=== PATIENT | male | born 1960 | race Caucasian/White ===

== ENCOUNTER 2017-10-28 22:14 | Inpatient (IN) | payer MEDICARE, MEDICAID ==
[~2017-10-28] VITALS: Ht 152.4 cm; Wt 90.7 kg
[~2017-10-28 22:14] MED LIST: CLON0.1T PO; COR3 PO; DIPH25CA83 PO; FAMO20TA8 PO; HYDR-4134 PO; IPRA0.2S51 IH; MAG-55 PO; NEPVIT PO; SEVE800T8 PO; TRAM50TA3 PO; ZOLP5TAB2 PO
[2017-10-28 23:08] LABS: BASOPHILS % 0.4 % (0.0-2.0); EOSINOPHILS % 0.6 % (0.0-5.0); HEMATOCRIT. 30.9 % (42.0-52.0); HEMOGLOBIN. 10.1 g/dL (14.0-18.0); LYMPHOCYTES % 8.1 % (20.0-50.0); MEAN CORPUSCULAR HEMOGLOBIN 30.6 pg (28.0-32.0); MEAN CORPUSCULAR VOLUME 93.6 fL (80.0-94.0); MEAN PLATELET VOLUME 8.1 fl (7.4-10.4); MONOCYTES % 10.3 % (2.0-8.0); NEUTROPHILS % 80.6 % (40.0-76.0); PLATELET 203 x1000/uL (130-400)
[2017-10-28] MEDS ORDERED: SODIUM CHLORIDE 0.9% 500 ML IV ONE (23:15)
[2017-10-28 23:16] LABS: CHLORIDE 95 mEq/L (98-107)
[2017-10-28 23:20] LABS: ETHANOL BLOOD < 10 mg/dL
[2017-10-28 23:23] LABS: BETA HYDROXYBUTYRATE 0.1 mMol/L (0.0-0.3)
[2017-10-28 23:25] LABS: TROPONIN I 0.05 ng/mL (0.00-0.04)
[2017-10-29] MEDS ORDERED: ASPIRIN 325MG TABLET PO ONE (00:30)
[2017-10-29 08:00] VITALS: BP 162/72
[2017-10-29 08:30] VITALS: BP 162/73
[2017-10-29] MEDS ORDERED: MAGNESIUM/ALUMINUM HYDROXIDE/SIMETHICONE 30ML UDC PO PRN (08:45)
[2017-10-29] MEDS ORDERED: DEXTROSE 50% WATER 50ML SYRINGE IV PRN ×2 (08:45→14:15)
[2017-10-29] MEDS ORDERED: DOCUSATE SODIUM 100MG CAPSULE PO PRN (08:45)
[2017-10-29] MEDS ORDERED: DIPHENHYDRAMINE 50MG/ML VIAL IV PRN (08:45)
[2017-10-29] MEDS ORDERED: IPRATROPIUM/ALBUTEROL 0.5-3(2.5)MG/3ML NEB INH PRN (08:45)
[2017-10-29] MEDS ORDERED: ACETAMINOPHEN 650MG SUPP PR PRN (08:45)
[2017-10-29] MEDS ORDERED: ACETAMINOPHEN 650MG/20.3ML UDC GT PRN (08:45)
[2017-10-29] MEDS ORDERED: NA PHOS,M-B/NA PHOS,DI-BA ENEMA 118ML PR PRN (08:45)
[2017-10-29] MEDS: ENOXAPARIN 40MG/0.4ML SYR SUBCUT SCH (09:49)
[2017-10-29 12:00] VITALS: BP 161/62
[2017-10-29 12:19] LABS: HEMATOCRIT. 27.8 % (42.0-52.0); HEMOGLOBIN. 8.9 g/dL (14.0-18.0); MEAN CORPUSCULAR HEMOGLOBIN 29.8 pg (28.0-32.0); MEAN CORPUSCULAR VOLUME 92.9 fL (80.0-94.0); MEAN PLATELET VOLUME 8.3 fl (7.4-10.4); PLATELET 220 x1000/uL (130-400); RED BLOOD CELL COUNT 2.99 mill/uL (4.7-6.1)
[2017-10-29 12:32] LABS: CHLORIDE 96 mEq/L (98-107)
[2017-10-29] MEDS ORDERED: BLOOD SUGAR DIAGNOSTIC STRIP TEST SCH (12:40)
[2017-10-29 12:45] LABS: PLATELET ESTIMATE NORMAL
[2017-10-29] MEDS ORDERED: INSULIN LISPRO 100 UNITS/ML SUBCUT SCH (13:10)
[2017-10-29 13:33] LABS: T4 FREE 1.11 ng/dL (0.76-1.46)
[2017-10-29] MEDS: SODIUM CHLORIDE 0.9% INJ 3ML FLUSH IVF SCH ×2 (13:58→21:07)
[2017-10-29 16:00] VITALS: BP 162/63
[2017-10-29 17:08] LABS: CREATINE KINASE MB FRACTION 1.1 ng/mL (0.5-3.6); TROPONIN I 0.05 ng/mL (0.00-0.04)
[2017-10-29] MEDS: CLONIDINE 0.1MG TABLET PO PRN (17:20)
[2017-10-29] MEDS: ACETAMINOPHEN 325MG TABLET PO PRN (17:20)
[2017-10-29] MEDS ORDERED: ALBUTEROL (0.083%) 2.5MG/3ML NEB HHN NR (18:00)
[2017-10-29] MEDS ORDERED: BACL-141 PO (18:30)
[2017-10-29] MEDS ORDERED: LISI-604 PO (18:30)
[2017-10-29] MEDS ORDERED: DORZ10DR7 EACHEYE (18:30)
[2017-10-29] MEDS ORDERED: BENA20TA3 PO (18:30)
[2017-10-29] MEDS ORDERED: GABA-529 PO (18:30)
[2017-10-29] MEDS ORDERED: LIDO30CR TP (18:30)
[2017-10-29] MEDS ORDERED: CINA30 PO (18:30)
[2017-10-29] MEDS ORDERED: FURO-152 PO (18:30)
[2017-10-29] MEDS ORDERED: MELA5TAB3 PO (18:30)
[2017-10-29] MEDS: BLOOD SUGAR DIAGNOSTIC STRIP TEST SCH ×2 (18:35→21:05)
[2017-10-29] MEDS ORDERED: IOHEXOL-300 100 ML BOTTLE ONE (19:07)
[2017-10-29] MEDS: CEFTRIAXONE 1 G PREMIX 50 ML IV SCH (19:15)
[2017-10-29] MEDS: INSULIN LISPRO 100 UNITS/ML SUBCUT SCH ×2 (19:15→21:19)
[2017-10-29] MEDS: GUAIFENESIN 200MG/10ML SUGAR FREE UDC PO PRN (19:15)
[2017-10-29 20:00] VITALS: BP 129/61
[2017-10-29] MEDS ORDERED: AZITHROMYCIN 500 MG in DEXT 5% WATER 250 ML IV SCH (20:00)
[2017-10-30] VITALS: BP 136/63
[2017-10-30 00:34] LABS: CREATINE KINASE MB FRACTION 0.7 ng/mL (0.5-3.6); TROPONIN I 0.04 ng/mL (0.00-0.04)
[2017-10-30] MEDS: ALBUTEROL (0.083%) 2.5MG/3ML NEB HHN SCH ×2 (01:54→21:47)
[2017-10-30 04:00] VITALS: BP 128/48
[2017-10-30] MEDS: ACETAMINOPHEN 325MG TABLET PO PRN ×3 (04:08→20:37)
[2017-10-30] MEDS: BLOOD SUGAR DIAGNOSTIC STRIP TEST SCH ×4 (05:42→20:24)
[2017-10-30] MEDS: SODIUM CHLORIDE 0.9% INJ 3ML FLUSH IVF SCH ×3 (05:42→20:37)
[2017-10-30 06:29] LABS: HEMATOCRIT. 28.4 % (42.0-52.0); HEMOGLOBIN. 9.1 g/dL (14.0-18.0); MEAN CORPUSCULAR VOLUME 93.3 fL (80.0-94.0); MEAN PLATELET VOLUME 8.6 fl (7.4-10.4); PLATELET 240 x1000/uL (130-400); RED BLOOD CELL COUNT 3.04 mill/uL (4.7-6.1); RED CELL DISTRIBUTION WIDTH 14.1 % (11.6-14.6)
[2017-10-30 06:45] LABS: CHLORIDE 95 mEq/L (98-107)
[2017-10-30 06:54] LABS: CREATINE KINASE 91 IU/L (39-308); CREATINE KINASE MB FRACTION < 0.5 ng/mL (0.5-3.6); HDL CHOLESTEROL 28 mg/dL (40-59); LDL CHOLESTEROL 44 mg/dL (5-100); TROPONIN I 0.04 ng/mL (0.00-0.04)
[2017-10-30 08:00] VITALS: BP 143/41
[2017-10-30 08:56] LABS: PLATELET ESTIMATE NORMAL
[2017-10-30] MEDS: ENOXAPARIN 40MG/0.4ML SYR SUBCUT SCH (09:10)
[2017-10-30] MEDS: INSULIN LISPRO 100 UNITS/ML SUBCUT SCH ×4 (09:11→21:00)
[2017-10-30 12:00] VITALS: BP 136/39
[2017-10-30 16:00] VITALS: BP 144/52
[2017-10-30] MEDS: CEFTRIAXONE 1 G PREMIX 50 ML IV SCH (18:51)
[2017-10-30] MEDS ORDERED: AZITHROMYCIN 500 MG in SODIUM CHLORIDE 0.9% 250 ML IV SCH (20:00)
[2017-10-30 20:12] VITALS: BP 181/64
[2017-10-30] MEDS: CLONIDINE 0.1MG TABLET PO PRN (20:37)
[2017-10-30] MEDS ORDERED: EPOETIN ALFA 4000UNITS/ML VIAL SUBCUT SCH (21:00)
[2017-10-31] VITALS (7 sets, daily range): BP systolic 117–132; BP diastolic 39–67
[2017-10-31] MEDS: ALBUTEROL (0.083%) 2.5MG/3ML NEB HHN SCH ×4 (03:13→20:19)
[2017-10-31] MEDS: SODIUM CHLORIDE 0.9% INJ 3ML FLUSH IVF SCH ×2 (05:29→08:41)
[2017-10-31] MEDS: ACETAMINOPHEN 325MG TABLET PO PRN (06:19)
[2017-10-31] MEDS: BLOOD SUGAR DIAGNOSTIC STRIP TEST SCH ×3 (06:52→17:43)
[2017-10-31] MEDS: INSULIN LISPRO 100 UNITS/ML SUBCUT SCH ×3 (07:44→17:53)
[2017-10-31] MEDS: GUAIFENESIN 200MG/10ML SUGAR FREE UDC PO PRN (08:41)
[2017-10-31] MEDS: ENOXAPARIN 40MG/0.4ML SYR SUBCUT SCH (08:41)
[2017-10-31] MEDS ORDERED: LEVO250T2 PO (14:55)
[2017-10-31] MEDS: CEFTRIAXONE 1 G PREMIX 50 ML IV SCH (18:00)
== END 2017-10-31 21:55 | disposition home health service (06) | DRG 917 ==
LOC: ER 22:14 → ENRESERV 10-29 05:00 → 7WST 10-29 07:58
PROVIDERS: ADMIT Family Medicine; ATTEND Family Medicine
PROC: 5A1D70Z Performance of Urinary Filtration, Intermittent, Less than 6 Hours Per Day (ICD-10-PCS; principal; 2017-10-30)
DX: T50.991A Poisoning by other drugs, medicaments and biological substances, accidental (unintentional), initial encounter (principal); N18.6 End stage renal disease; G92 Toxic encephalopathy; E46 Unspecified protein-calorie malnutrition; E11.22 Type 2 diabetes mellitus with diabetic chronic kidney disease; E11.40 Type 2 diabetes mellitus with diabetic neuropathy, unspecified; J18.9 Pneumonia, unspecified organism; I12.0 Hypertensive chronic kidney disease with stage 5 chronic kidney disease or end stage renal disease; E87.1 Hypo-osmolality and hyponatremia; N25.81 Secondary hyperparathyroidism of renal origin; E83.51 Hypocalcemia; D63.8 Anemia in other chronic diseases classified elsewhere; D72.829 Elevated white blood cell count, unspecified; E78.5 Hyperlipidemia, unspecified; F41.9 Anxiety disorder, unspecified; Y92.89 Other specified places as the place of occurrence of the external cause; Z99.2 Dependence on renal dialysis; Z68.39 Body mass index [BMI] 39.0-39.9, adult; Z79.899 Other long term (current) drug therapy
CPT/HCPCS: 36415; 71045; 71260; 80053; 80061; 80307; 80329; 82010; 82550; 82553; 82962; 83036; 83880; 84439; 84443; 84484; 85025; 85379; 87040; 93005; 93306; 94640; 96360; 96361; 97116; 97162; 99285; G0482; J0456; J0696; J0885; J1650; J1815; J7030; J7040; J7050; J7060; J7611; Q9967

== ENCOUNTER 2017-11-03 04:18 | Emergency (ER) | payer MEDICARE, MEDICAID ==
[~2017-11-03] VITALS: Ht 162.6 cm; Wt 81.0 kg
[~2017-11-03 04:18] MED LIST changes: +BACL-141 PO; +BENA20TA3 PO; +CINA30 PO; +DORZ10DR7 EACHEYE; +FURO-152 PO; +GABA-529 PO; +LEVO250T2 PO; +LIDO30CR TP; +LISI-604 PO; +MELA5TAB3 PO
[2017-11-03] MEDS ORDERED: IBUPROFEN 600MG TABLET PO ONE (05:45)
[2017-11-03] MEDS ORDERED: SODIUM CHLORIDE 0.9% 1,000 ML IV ONE (06:31)
[2017-11-03 07:14] LABS: BASOPHILS % 1.1 % (0.0-2.0); EOSINOPHILS % 3.1 % (0.0-5.0); HEMATOCRIT. 29.7 % (42.0-52.0); HEMOGLOBIN. 9.5 g/dL (14.0-18.0); LYMPHOCYTES % 12.3 % (20.0-50.0); MEAN CORPUSCULAR HEMOGLOBIN 29.8 pg (28.0-32.0); MEAN CORPUSCULAR VOLUME 92.8 fL (80.0-94.0); NEUTROPHILS % 72.5 % (40.0-76.0); RED CELL DISTRIBUTION WIDTH 13.6 % (11.6-14.6)
[2017-11-03 07:27] LABS: CHLORIDE 100 mEq/L (98-107)
[2017-11-03 08:20] LABS: MEAN PLATELET VOLUME 8.5 fl (7.4-10.4); PLATELET 367 x1000/uL (130-400)
[2017-11-03 12:30] VITALS: BP 152/84
== END 2017-11-03 13:01 | disposition home or self-care (01) ==
LOC: ER 04:18
DX: R53.1 Weakness (principal); I12.0 Hypertensive chronic kidney disease with stage 5 chronic kidney disease or end stage renal disease; E11.22 Type 2 diabetes mellitus with diabetic chronic kidney disease; N18.6 End stage renal disease; Z99.2 Dependence on renal dialysis; Z79.899 Other long term (current) drug therapy
CPT/HCPCS: 36415; 71045; 80053; 82962; 85025; 99285; J7030

== ENCOUNTER 2018-03-09 07:51 | Emergency (ER) | payer MEDICARE, MEDICAID ==
[~2018-03-09] VITALS: Ht 162.6 cm; Wt 82.0 kg
[~2018-03-09 07:51] MED LIST changes: -DORZ10DR7 EACHEYE; +DORZ10DR8 EACHEYE
[2018-03-09 08:05] VITALS: BP 144/58
[2018-03-09] MEDS ORDERED: OXYMETAZOLINE HCL NASAL SPRAY 15ML RIGHTNSTRL SCH (09:45)
[2018-03-09] MEDS ORDERED: COCAINE 4% TOPICAL SOLN 4ML TOP ONE (12:15)
[2018-03-09] MEDS ORDERED: SODIUM CHLORIDE 0.9% 1,000 ML IV ONE (12:15)
[2018-03-09 12:47] LABS: BASOPHILS % 1.2 % (0.0-2.0); EOSINOPHILS % 3.1 % (0.0-5.0); HEMATOCRIT. 26.3 % (42.0-52.0); HEMOGLOBIN. 8.5 g/dL (14.0-18.0); LYMPHOCYTES % 11.8 % (20.0-50.0); MEAN CORPUSCULAR HEMOGLOBIN 29.8 pg (28.0-32.0); MEAN CORPUSCULAR VOLUME 92.1 fL (80.0-94.0); MEAN PLATELET VOLUME 8.9 fl (7.4-10.4); MONOCYTES % 4.9 % (2.0-8.0); PLATELET 153 x1000/uL (130-400); RED BLOOD CELL COUNT 2.85 mill/uL (4.7-6.1); RED CELL DISTRIBUTION WIDTH 14.8 % (11.6-14.6)
[2018-03-09] MEDS ORDERED: VISCOUS LIDOCAINE 2% 15 ML UDC MM PRN (13:00)
[2018-03-09 13:24] LABS: INR 1.1; PROTHROMBIN TIME 11.5 sec (9.4-11.6)
[2018-03-09] MEDS ORDERED: ACETAMINOPHEN 500MG TABLET PO ONE (14:45)
== END 2018-03-09 16:55 | disposition home or self-care (01) ==
LOC: ER 07:51
DX: R04.0 Epistaxis (principal); D64.9 Anemia, unspecified; I10 Essential (primary) hypertension; E11.65 Type 2 diabetes mellitus with hyperglycemia; N18.6 End stage renal disease; Z99.2 Dependence on renal dialysis; Z90.49 Acquired absence of other specified parts of digestive tract; Z79.899 Other long term (current) drug therapy
CPT/HCPCS: 30901; 36415; 85025; 85610; 99284; J7030

== ENCOUNTER 2018-03-11 10:41 | Emergency (ER) | payer MEDICARE, MEDICAID ==
[~2018-03-11] VITALS: Ht 165.1 cm; Wt 85.0 kg
[2018-03-11] MEDS ORDERED: HYDROCODONE/ACETAMINOPHEN 5/325MG TABLET PO ONE (14:15)
[2018-03-11 14:48] VITALS: BP 145/58
== END 2018-03-11 14:53 | disposition home or self-care (01) ==
LOC: ER 12:23
DX: Z48.00 Encounter for change or removal of nonsurgical wound dressing (principal); I12.0 Hypertensive chronic kidney disease with stage 5 chronic kidney disease or end stage renal disease; N18.6 End stage renal disease; D64.9 Anemia, unspecified; Z99.2 Dependence on renal dialysis
CPT/HCPCS: 99283

== ENCOUNTER 2019-05-12 17:00 | Inpatient (IN) | payer MEDICARE, MEDICAID ==
[~2019-05-12] VITALS: Ht 162.6 cm; Wt 89.0 kg
[~2019-05-12 17:00] MED LIST changes: +BENA20TA10 PO; -BENA20TA3 PO
[2019-05-12] MEDS ORDERED: GUAIFENESIN 200MG/10ML SUGAR FREE UDC PO PRN (19:15)
[2019-05-12] MEDS ORDERED: ACETAMINOPHEN 325MG TABLET PO PRN (19:15)
[2019-05-12] MEDS ORDERED: MAGNESIUM/ALUMINUM HYDROXIDE/SIMETHICONE 30ML UDC PO PRN (19:15)
[2019-05-12] MEDS ORDERED: ONDANSETRON HCL 4MG/2ML INJ IV PRN (19:15)
[2019-05-12] MEDS ORDERED: MORPHINE SULFATE 2 MG/ML CPJ (NOT FOR IM USE) IV PRN (19:15)
[2019-05-12 19:46] VITALS: BP 162/73
[2019-05-12 20:00] VITALS: BP 184/83
[2019-05-12] MEDS: LISINOPRIL 20MG TABLET PO SCH (20:20)
[2019-05-12] MEDS: AMLODIPINE 10MG TABLET PO SCH (20:21)
[2019-05-12 22:00] VITALS: BP 168/72
[2019-05-12] MEDS: DOCUSATE SODIUM 100MG CAPSULE PO PRN (22:16)
[2019-05-12] MEDS: CLONIDINE 0.1MG TABLET PO PRN (22:17)
[2019-05-12] MEDS: LORAZEPAM 2MG/ML CPJ IV PRN (22:26)
[2019-05-12] MEDS ORDERED: PNEUMOCOCCAL 23-VAL P-SAC VAC 0.5 ML IM ONE (23:15)
[2019-05-13] VITALS (11 sets, daily range): BP systolic 118–146; BP diastolic 55–77
[2019-05-13] MEDS ORDERED: PNEUMOCOCCAL 23-VAL P-SAC VAC 0.5 ML IM ONE (01:00)
[2019-05-13 06:39] LABS: BASOPHILS % 1.9 % (0.0-2.0); EOSINOPHILS % 4.1 % (0.0-5.0); HEMATOCRIT. 28.7 % (42.0-52.0); HEMOGLOBIN. 9.3 g/dL (14.0-18.0); LYMPHOCYTES % 16.9 % (20.0-50.0); MEAN CORPUSCULAR HEMOGLOBIN 30.5 pg (28.0-32.0); MEAN CORPUSCULAR VOLUME 93.9 fL (80.0-94.0); NEUTROPHILS % 67.1 % (40.0-76.0); PLATELET 179 x1000/uL (130-400); RED BLOOD CELL COUNT 3.05 mill/uL (4.7-6.1); RED CELL DISTRIBUTION WIDTH 15.6 % (11.6-14.6)
[2019-05-13 06:45] LABS: CHLORIDE 103 mEq/L (98-107)
[2019-05-13 06:53] LABS: LDL CHOLESTEROL 42 mg/dL (5-100)
[2019-05-13 06:55] LABS: HDL CHOLESTEROL 27 mg/dL (40-59)
[2019-05-13] MEDS: LISINOPRIL 20MG TABLET PO SCH (09:38)
[2019-05-13] MEDS: AMLODIPINE 10MG TABLET PO SCH (09:38)
[2019-05-13 16:13] LABS: INR 1.1; PROTHROMBIN TIME 11.5 sec (9.6-11.0)
[2019-05-13 16:19] LABS: CREATINE KINASE MB FRACTION 2.1 ng/mL (0.5-3.6)
[2019-05-13] MEDS: EPOETIN ALFA 10000UNITS/ML VIAL SUBCUT SCH (20:18)
[2019-05-13] MEDS ORDERED: AMIODARONE HCL 900 MG in DEXT 5% WATER 482 ML IV PRN (21:00)
[2019-05-14] VITALS (14 sets, daily range): BP systolic 126–158; BP diastolic 46–76
[2019-05-14] MEDS ORDERED: DEXTROSE 50% WATER 50ML SYRINGE IV PRN (00:30)
[2019-05-14] MEDS: LORAZEPAM 2MG/ML CPJ IV PRN ×2 (00:42→20:29)
[2019-05-14] MEDS: BLOOD SUGAR DIAGNOSTIC STRIP TEST SCH ×4 (06:12→20:21)
[2019-05-14] MEDS: INSULIN LISPRO 100 UNITS/ML SUBCUT SCH ×4 (07:59→20:30)
[2019-05-14] MEDS: AMLODIPINE 10MG TABLET PO SCH (08:00)
[2019-05-14] MEDS: LISINOPRIL 20MG TABLET PO SCH (08:00)
[2019-05-14] MEDS: HYDROCODONE/ACETAMINOPHEN 5/325MG TABLET PO PRN (20:18)
[2019-05-15] VITALS (23 sets, daily range): BP systolic 73–186; BP diastolic 36–92
[2019-05-15] MEDS: BLOOD SUGAR DIAGNOSTIC STRIP TEST SCH ×4 (06:34→21:00)
[2019-05-15] MEDS: INSULIN LISPRO 100 UNITS/ML SUBCUT SCH ×4 (07:20→21:00)
[2019-05-15 09:01] LABS: BASOPHILS % 1.2 % (0.0-2.0); EOSINOPHILS % 4.3 % (0.0-5.0); HEMATOCRIT. 28.1 % (42.0-52.0); HEMOGLOBIN. 9.1 g/dL (14.0-18.0); LYMPHOCYTES % 14.2 % (20.0-50.0); MEAN CORPUSCULAR HEMOGLOBIN 30.2 pg (28.0-32.0); MEAN CORPUSCULAR VOLUME 93.5 fL (80.0-94.0); MEAN PLATELET VOLUME 8.6 fl (7.4-10.4); NEUTROPHILS % 71.3 % (40.0-76.0); PLATELET 171 x1000/uL (130-400); RED CELL DISTRIBUTION WIDTH 15.7 % (11.6-14.6)
[2019-05-15 09:07] LABS: CHLORIDE 101 mEq/L (98-107)
[2019-05-15] MEDS ORDERED: LIDOCAINE HCL 1% 20ML VIAL (Pyxis) INJ ONE (10:00)
[2019-05-15] MEDS: AMLODIPINE 10MG TABLET PO SCH (12:33)
[2019-05-15] MEDS: HEPARIN 5000 UNITS/ML VIAL SUBCUT SCH ×2 (12:47→21:18)
[2019-05-15] MEDS: HYDROCODONE/ACETAMINOPHEN 5/325MG TABLET PO PRN (12:48)
[2019-05-15] MEDS: LISINOPRIL 20MG TABLET PO SCH (12:48)
[2019-05-15] MEDS: DOCUSATE SODIUM 100MG CAPSULE PO PRN (12:49)
[2019-05-15] MEDS: METOPROLOL TARTRATE 25MG TABLET PO SCH ×2 (12:49→21:20)
[2019-05-15] MEDS: ASPIRIN 325MG EC TABLET PO SCH (13:41)
[2019-05-15] MEDS: LORAZEPAM 2MG/ML CPJ IV PRN (21:17)
[2019-05-15] MEDS: ATORVASTATIN CALCIUM 10MG TABLET PO SCH (21:20)
[2019-05-16] VITALS (50 sets, daily range): BP systolic 60–182; BP diastolic 22–88
[2019-05-16 06:39] LABS: BASOPHILS % 1.3 % (0.0-2.0); EOSINOPHILS % 4.4 % (0.0-5.0); HEMOGLOBIN. 8.4 g/dL (14.0-18.0); LYMPHOCYTES % 13.8 % (20.0-50.0); MEAN CORPUSCULAR HEMOGLOBIN 30.1 pg (28.0-32.0); MEAN CORPUSCULAR VOLUME 93.4 fL (80.0-94.0); MEAN PLATELET VOLUME 9.6 fl (7.4-10.4); MONOCYTES % 9.2 % (2.0-8.0); NEUTROPHILS % 71.3 % (40.0-76.0); PLATELET 149 x1000/uL (130-400); RED BLOOD CELL COUNT 2.78 mill/uL (4.7-6.1); RED CELL DISTRIBUTION WIDTH 15.6 % (11.6-14.6)
[2019-05-16] MEDS: BLOOD SUGAR DIAGNOSTIC STRIP TEST SCH ×4 (06:50→21:00)
[2019-05-16] MEDS: INSULIN LISPRO 100 UNITS/ML SUBCUT SCH ×4 (07:20→22:24)
[2019-05-16] MEDS ORDERED: MIDAZOLAM HCL 2 MG/2 ML VIAL ONE (07:40)
[2019-05-16] MEDS ORDERED: LIDOCAINE HCL 1% 20ML VIAL (Pyxis) INJ ONE (07:41)
[2019-05-16] MEDS ORDERED: FENTANYL CITRATE/PF 50MCG/ML 2ML VIAL ONE (07:41)
[2019-05-16] MEDS ORDERED: IODIXANOL 320MG/ML 100 ML BOTTLE IV ONE ×2 (07:41→08:47)
[2019-05-16] MEDS: ASPIRIN 325MG EC TABLET PO SCH (09:00)
[2019-05-16] MEDS: HEPARIN 5000 UNITS/ML VIAL SUBCUT SCH ×2 (09:00→21:00)
[2019-05-16] MEDS ORDERED: ATROPINE SULFATE 1MG/10ML SYR IV PRN (09:30)
[2019-05-16] MEDS ORDERED: ACETAMINOPHEN 325MG TABLET PO PRN (09:30)
[2019-05-16] MEDS: AMLODIPINE 10MG TABLET PO SCH (09:49)
[2019-05-16] MEDS: LISINOPRIL 20MG TABLET PO SCH (09:49)
[2019-05-16] MEDS: METOPROLOL TARTRATE 25MG TABLET PO SCH ×2 (09:50→20:20)
[2019-05-16] MEDS ORDERED: NICARDIPINE 100MCG/ML 10ML VIAL (CATH LAB) IV ONE (12:00)
[2019-05-16] MEDS ORDERED: HEPARIN SODIUM 1,000 UNIT/1ML VIAL IV ONE (12:00)
[2019-05-16] MEDS ORDERED: NITROGLYCERIN 50MCG/ML 10ML VIAL (CATH LAB) IV ONE (12:00)
[2019-05-16 12:06] LABS: INR 1.1; PARTIAL THROMBOPLASTIN TIME 49.4 sec (23.4-31.0); PROTHROMBIN TIME 11.8 sec (9.6-11.0)
[2019-05-16] MEDS: HYDROCODONE/ACETAMINOPHEN 5/325MG TABLET PO PRN (17:33)
[2019-05-16] MEDS: CLONIDINE 0.1MG TABLET PO PRN (18:14)
[2019-05-16] MEDS: ATORVASTATIN CALCIUM 10MG TABLET PO SCH (20:20)
[2019-05-16] MEDS: EPOETIN ALFA 10000UNITS/ML VIAL SUBCUT SCH (22:24)
[2019-05-17] VITALS (10 sets, daily range): BP systolic 110–160; BP diastolic 24–71
[2019-05-17] MEDS: BLOOD SUGAR DIAGNOSTIC STRIP TEST SCH ×2 (06:47→11:21)
[2019-05-17] MEDS: INSULIN LISPRO 100 UNITS/ML SUBCUT SCH ×2 (06:47→12:23)
[2019-05-17 07:01] LABS: BASOPHILS % 1.2 % (0.0-2.0); EOSINOPHILS % 4.4 % (0.0-5.0); HEMATOCRIT. 25.6 % (42.0-52.0); HEMOGLOBIN. 8.3 g/dL (14.0-18.0); LYMPHOCYTES % 12.7 % (20.0-50.0); MEAN CORPUSCULAR HEMOGLOBIN 30.5 pg (28.0-32.0); MEAN CORPUSCULAR VOLUME 93.5 fL (80.0-94.0); MONOCYTES % 9.6 % (2.0-8.0); NEUTROPHILS % 72.1 % (40.0-76.0); PLATELET 153 x1000/uL (130-400); RED BLOOD CELL COUNT 2.73 mill/uL (4.7-6.1); RED CELL DISTRIBUTION WIDTH 15.4 % (11.6-14.6)
[2019-05-17] MEDS: ASPIRIN 325MG EC TABLET PO SCH (08:14)
[2019-05-17] MEDS: LISINOPRIL 20MG TABLET PO SCH (08:15)
[2019-05-17] MEDS: AMLODIPINE 10MG TABLET PO SCH (08:15)
[2019-05-17] MEDS: METOPROLOL TARTRATE 25MG TABLET PO SCH (08:16)
[2019-05-17] MEDS: HEPARIN 5000 UNITS/ML VIAL SUBCUT SCH (08:57)
[2019-05-18] MEDS ORDERED: APIXABAN 2.5 MG TABLET PO SCH (09:00)
== END 2019-05-17 16:10 | disposition home or self-care (01) | DRG 280 ==
LOC: 3WST 17:00
PROVIDERS: ADMIT Hospitalist; ATTEND Hospitalist
PROC: 5A1D70Z Performance of Urinary Filtration, Intermittent, Less than 6 Hours Per Day (ICD-10-PCS; 2019-05-13)
PROC: 05HY33Z Insertion of Infusion Device into Upper Vein, Percutaneous Approach (ICD-10-PCS; principal; 2019-05-15)
PROC: B54MZZA Ultrasonography of Right Upper Extremity Veins, Guidance (ICD-10-PCS; 2019-05-15)
PROC: 5A1D70Z Performance of Urinary Filtration, Intermittent, Less than 6 Hours Per Day (ICD-10-PCS; 2019-05-15)
PROC: 4A023N7 Measurement of Cardiac Sampling and Pressure, Left Heart, Percutaneous Approach (ICD-10-PCS; 2019-05-16)
PROC: B2111ZZ Fluoroscopy of Multiple Coronary Arteries using Low Osmolar Contrast (ICD-10-PCS; 2019-05-16)
PROC: 4A033BC Measurement of Arterial Pressure, Coronary, Percutaneous Approach (ICD-10-PCS; 2019-05-16)
DX: I21.4 Non-ST elevation (NSTEMI) myocardial infarction (principal); N18.6 End stage renal disease; I50.41 Acute combined systolic (congestive) and diastolic (congestive) heart failure; I13.2 Hypertensive heart and chronic kidney disease with heart failure and with stage 5 chronic kidney disease, or end stage renal disease; E11.22 Type 2 diabetes mellitus with diabetic chronic kidney disease; E11.40 Type 2 diabetes mellitus with diabetic neuropathy, unspecified; E11.319 Type 2 diabetes mellitus with unspecified diabetic retinopathy without macular edema; D63.1 Anemia in chronic kidney disease; E66.9 Obesity, unspecified; E78.5 Hyperlipidemia, unspecified; I25.110 Atherosclerotic heart disease of native coronary artery with unstable angina pectoris; I48.0 Paroxysmal atrial fibrillation; I25.2 Old myocardial infarction; Z99.2 Dependence on renal dialysis; Z82.3 Family history of stroke; Z68.33 Body mass index [BMI] 33.0-33.9, adult; Z79.4 Long term (current) use of insulin; Z79.899 Other long term (current) drug therapy
CPT/HCPCS: 36415; 71045; 76937; 80048; 80061; 82550; 82553; 82962; 83735; 84484; 85347; 90732; 93005; 93306; 93458; 93571; C1725; C1726; C1769; C1887; C1893; J0885; J1644; J1815; J2060; J2250; J2270; J3010; J3490; J7040; Q9967

== ENCOUNTER 2020-04-17 20:58 | Inpatient (IN) | payer MEDICARE, MEDICAID ==
[~2020-04-17] VITALS: Ht 160 cm; Wt 99.8 kg
[~2020-04-17 20:58] MED LIST changes: +ALBU90AE INH; +BENA20TA10 MT; -BENA20TA10 PO; +CINA30TA5 PO; +FERR325T23 MT; +HYDR-4001 MT; -HYDR-4134 PO; +HYDR-4135 PO; -LISI-604 PO
[2020-04-18] VITALS (55 sets, daily range): BP systolic 0–193; BP diastolic 0–105
[2020-04-18 00:35] LABS: CHLORIDE 94 mEq/L (98-107)
[2020-04-18 00:38] LABS: BASOPHILS % 2.1 % (0.0-2.0); EOSINOPHILS % 1.5 % (0.0-5.0); HEMATOCRIT. 25.9 % (42.0-52.0); HEMOGLOBIN. 8.2 g/dL (14.0-18.0); LYMPHOCYTES % 13.6 % (20.0-50.0); MEAN CORPUSCULAR HEMOGLOBIN 29.5 pg (28.0-32.0); MEAN CORPUSCULAR VOLUME 93.5 fL (80.0-94.0); MEAN PLATELET VOLUME 8.7 fl (7.4-10.4); MONOCYTES % 9.4 % (2.0-8.0); NEUTROPHILS % 73.4 % (40.0-76.0); PLATELET 190 x1000/uL (130-400); RED BLOOD CELL COUNT 2.77 mill/uL (4.7-6.1); RED CELL DISTRIBUTION WIDTH 22.4 % (11.6-14.6)
[2020-04-18] MEDS ORDERED: AZITHROMYCIN 500 MG in DEXT 5% WATER 250 ML IV ONE (03:45)
[2020-04-18] MEDS ORDERED: CEFTRIAXONE 1 G PREMIX 50 ML IV ONE (03:45)
[2020-04-18] MEDS ORDERED: MAGNESIUM/ALUMINUM HYDROXIDE/SIMETHICONE 30ML UDC PO PRN (12:00)
[2020-04-18] MEDS ORDERED: GUAIFENESIN 200MG/10ML SUGAR FREE UDC PO PRN (12:00)
[2020-04-18] MEDS ORDERED: DOCUSATE SODIUM 100MG CAPSULE PO PRN (12:00)
[2020-04-18] MEDS ORDERED: DIPHENHYDRAMINE 50MG/ML VIAL IV PRN (12:00)
[2020-04-18] MEDS ORDERED: MORPHINE SULFATE 2 MG/ML CPJ (NOT FOR IM USE) IV PRN ×2 (12:00)
[2020-04-18] MEDS ORDERED: CLONIDINE 0.1MG TABLET PO PRN (12:00)
[2020-04-18] MEDS ORDERED: NA PHOS,M-B/NA PHOS,DI-BA ENEMA 118ML PR PRN (12:00)
[2020-04-18] MEDS ORDERED: ACETAMINOPHEN 650MG SUPP PR PRN (12:00)
[2020-04-18] MEDS ORDERED: DEXTROSE 50% WATER 50ML SYRINGE IV PRN (12:00)
[2020-04-18] MEDS ORDERED: ONDANSETRON HCL 4MG/2ML INJ IV PRN (12:00)
[2020-04-18] MEDS ORDERED: LORAZEPAM 0.5MG TABLET PO PRN (12:00)
[2020-04-18] MEDS ORDERED: PIPERACILLIN/TAZOBACTAM 2.25 G in DEXTROSE 5% WATER 50 ML IV SCH ×2 (12:00→14:00)
[2020-04-18] MEDS ORDERED: HYDROCODONE/ACETAMINOPHEN 5/325MG TABLET PO PRN (12:00)
[2020-04-18] MEDS: INSULIN LISPRO 100 UNITS/ML SUBCUT SCH ×2 (12:15→17:55)
[2020-04-18] MEDS ORDERED: DEXT 5%/0.9% NACL 1,000 ML IV SCH (12:15)
[2020-04-18] MEDS ORDERED: PROPOFOL 10MG/ML 100ML 100 ML IV PRN (13:45)
[2020-04-18 14:07] LABS: INR 1.5; PROTHROMBIN TIME 15.6 sec (9.6-11.0)
[2020-04-18 14:08] LABS: CHLORIDE 99 mEq/L (98-107)
[2020-04-18 14:22] LABS: BG BASE EXCESS -23.3 mmol/L (-2.0-2.0); BG CARBOXYHEMOGLOBIN 0.6 % (0.5-1.5); BG DEOXYHEMOGLOBIN 5.2 % (0.0-5.0); BG FRACTION INSPIRED OXYGEN 100; BG HCO3 ACT 9.9 mmol/L (22.0-26.0); BG METHEMOGLOBIN 0.2 % (0.0-1.5); BG OXYGEN SATURATION 94.8 % (92.0-98.5); BG PCO2 58.3 mmHg (35.0-45.0); BG PH 6.848 (7.350-7.450); BG SAMPLE SITE RIGHT RADIAL; BG TIDAL VOLUME(mL) 500 mL; BG TOTAL HEMOGLOBIN 10.2 g/dL (12.0-18.0); BG VENT RATE 16 set
[2020-04-18] MEDS ORDERED: DEXTROSE 50% WATER 50ML SYRINGE IV NR (14:30)
[2020-04-18] MEDS ORDERED: DOPAMINE 400MG/250ML PREMIX 250 ML IV SCH (14:30)
[2020-04-18] MEDS ORDERED: ATROPINE SULFATE 1MG/10ML SYR IV NR (14:30)
[2020-04-18] MEDS ORDERED: INSULIN REGULAR (HUMULIN R) 300UNITS/3ML IV NR (14:30)
[2020-04-18] MEDS ORDERED: IPRATROPIUM/ALBUTEROL 0.5-3(2.5)MG/3ML NEB HHN NR (14:30)
[2020-04-18] MEDS ORDERED: SODIUM BICARBONATE 4% (2.4MEQ) 5ML VIAL IV ONE (14:41)
[2020-04-18] MEDS ORDERED: LIDOCAINE HCL 1% 20ML VIAL (Pyxis) INJ ONE (14:42)
[2020-04-18 14:49] LABS: HEMATOCRIT. 25.6 % (42.0-52.0); HEMOGLOBIN. 7.4 g/dL (14.0-18.0); MEAN CORPUSCULAR VOLUME 99.7 fL (80.0-94.0); PLATELET 200 x1000/uL (130-400); RED BLOOD CELL COUNT 2.57 mill/uL (4.7-6.1); RED CELL DISTRIBUTION WIDTH 22.2 % (11.6-14.6)
[2020-04-18] MEDS: SODIUM BICARBONATE 8.4% 1 MEQ/ML 50ML SYR IV NR ×2 (15:07→16:21)
[2020-04-18 15:26] LABS: PLATELET ESTIMATE NORMAL
[2020-04-18] MEDS ORDERED: CALCIUM CHLORIDE 1GM/10ML SYR IV NR (15:30)
[2020-04-18 15:48] LABS: BG VENT MODE VENT - AC
[2020-04-18 15:49] LABS: BG FRACTION INSPIRED OXYGEN 100; BG HCO3 ACT 3.9 mmol/L (22.0-26.0); BG PCO2 19.6 mmHg (35.0-45.0); BG PH 6.914 (7.350-7.450); BG SAMPLE SITE A-LINE; BG TIDAL VOLUME(mL) 500 mL; BG TOTAL HEMOGLOBIN < 4.5 g/dL (12.0-18.0); BG VENT MODE VENT - A/C; BG VENT RATE 16 set
[2020-04-18] MEDS ORDERED: SODIUM BICARBONATE 100 MEQ in DEXT 5%/0.9% NACL 1,000 ML IV SCH (16:00)
[2020-04-18] MEDS ORDERED: SODIUM BICARBONATE 8.4% 1 MEQ/ML 50ML SYR IV NR ×2 (16:30→23:45)
[2020-04-18] MEDS ORDERED: BLOOD SUGAR DIAGNOSTIC STRIP TEST SCH (16:45)
[2020-04-18] MEDS: DEXTROSE 50% WATER 50ML SYRINGE IV PRN (17:53)
[2020-04-18 17:57] LABS: BG BASE EXCESS -23.7 mmol/L (-2.0-2.0); BG CARBOXYHEMOGLOBIN 0.3 % (0.5-1.5); BG DEOXYHEMOGLOBIN 0.1 % (0.0-5.0); BG FRACTION INSPIRED OXYGEN 100; BG METHEMOGLOBIN 0.5 % (0.0-1.5); BG OXYGEN SATURATION 99.9 % (92.0-98.5); BG OXYHEMOGLOBIN 99.1 % (94.0-97.0); BG PCO2 25.1 mmHg (35.0-45.0); BG PH 6.995 (7.350-7.450); BG PO2 587.6 mmHg (75.0-100.0); BG SAMPLE SITE A-LINE; BG TIDAL VOLUME(mL) 500 mL; BG VENT MODE VENT - A/C; BG VENT RATE 20 set
[2020-04-18] MEDS ORDERED: VANCOMYCIN 1,750 MG in DEXT 5% WATER 500 ML IV NR (20:00)
[2020-04-18] MEDS: EPOETIN ALFA 10000UNITS/ML VIAL SUBCUT SCH (20:08)
[2020-04-18] MEDS: DOPAMINE 800MG PREMIX (DOUBLE) 250 ML IV PRN (20:42)
[2020-04-18 22:18] LABS: BG BASE EXCESS -13.1 mmol/L (-2.0-2.0); BG CARBOXYHEMOGLOBIN 0.2 % (0.5-1.5); BG DEOXYHEMOGLOBIN 0.1 % (0.0-5.0); BG FRACTION INSPIRED OXYGEN 80; BG HCO3 ACT 12.7 mmol/L (22.0-26.0); BG METHEMOGLOBIN 0.3 % (0.0-1.5); BG OXYGEN SATURATION 99.9 % (92.0-98.5); BG OXYHEMOGLOBIN 99.4 % (94.0-97.0); BG PCO2 29.3 mmHg (35.0-45.0); BG PH 7.255 (7.350-7.450); BG PO2 415.6 mmHg (75.0-100.0); BG SAMPLE SITE A-LINE; BG TIDAL VOLUME(mL) 500 mL; BG TOTAL HEMOGLOBIN 10.2 g/dL (12.0-18.0); BG VENT MODE VENT - A/C; BG VENT RATE 20 set
[2020-04-18] MEDS: LACTULOSE 20G/30ML UDC PO SCH (22:59)
[2020-04-18] MEDS: PHENYLEPHRINE 50 MG in DEXT 5% WATER 245 ML IV PRN (23:00)
[2020-04-19] VITALS (138 sets, daily range): BP systolic 17–195; BP diastolic -2–79
[2020-04-19] MEDS ORDERED: INSULIN LISPRO 100 UNITS/ML SUBCUT SCH
[2020-04-19] MEDS: DEXTROSE 50% WATER 50ML SYRINGE IV PRN (00:36)
[2020-04-19] MEDS: BLOOD SUGAR DIAGNOSTIC STRIP TEST SCH ×4 (00:36→17:28)
[2020-04-19] MEDS: SODIUM BICARBONATE 150 MEQ in DEXT 5%/0.45% NACL 1000ML 1,000 ML IV SCH (00:36)
[2020-04-19] MEDS: PANTOPRAZOLE SODIUM 40 MG/VIAL IV SCH ×2 (00:45→08:57)
[2020-04-19] MEDS: PIPERACILLIN/TAZOBACTAM 2.25 G in DEXTROSE 5% WATER 50 ML IV SCH ×3 (02:16→17:28)
[2020-04-19] MEDS: DOPAMINE 800MG PREMIX (DOUBLE) 250 ML IV PRN (02:17)
[2020-04-19] MEDS: PHENYLEPHRINE 50 MG in DEXT 5% WATER 245 ML IV PRN ×3 (05:14→11:30)
[2020-04-19] MEDS: INSULIN LISPRO 100 UNITS/ML SUBCUT SCH ×4 (05:47→17:30)
[2020-04-19] MEDS: LACTULOSE 20G/30ML UDC PO SCH ×3 (06:07→22:40)
[2020-04-19 06:46] LABS: INR 2.1; PROTHROMBIN TIME 21.6 sec (9.6-11.0)
[2020-04-19 07:00] LABS: CHLORIDE 90 mEq/L (98-107)
[2020-04-19 07:09] LABS: HEMOGLOBIN. 9.3 g/dL (14.0-18.0); MEAN CORPUSCULAR HEMOGLOBIN 28.3 pg (28.0-32.0); MEAN CORPUSCULAR VOLUME 94.8 fL (80.0-94.0); MEAN PLATELET VOLUME 8.9 fl (7.4-10.4); PLATELET 239 x1000/uL (130-400); RED BLOOD CELL COUNT 3.27 mill/uL (4.7-6.1); RED CELL DISTRIBUTION WIDTH 20.5 % (11.6-14.6)
[2020-04-19 07:19] LABS: BG BASE EXCESS -13.2 mmol/L (-2.0-2.0); BG CARBOXYHEMOGLOBIN 0.3 % (0.5-1.5); BG DEOXYHEMOGLOBIN 1.9 % (0.0-5.0); BG FRACTION INSPIRED OXYGEN 35; BG HCO3 ACT 11.3 mmol/L (22.0-26.0); BG METHEMOGLOBIN 0.7 % (0.0-1.5); BG OXYGEN SATURATION 98.1 % (92.0-98.5); BG OXYHEMOGLOBIN 97.1 % (94.0-97.0); BG PCO2 23.1 mmHg (35.0-45.0); BG PH 7.309 (7.350-7.450); BG SAMPLE SITE A-LINE; BG TIDAL VOLUME(mL) 500 mL; BG TOTAL HEMOGLOBIN 10.7 g/dL (12.0-18.0); BG VENT MODE VENT - A/C; BG VENT RATE 20 set
[2020-04-19 07:21] LABS: LDL CHOLESTEROL 23 mg/dL (5-100)
[2020-04-19 07:22] LABS: HDL CHOLESTEROL 30 mg/dL (40-59)
[2020-04-19] MEDS ORDERED: SODIUM BICARBONATE 8.4% 1 MEQ/ML 50ML SYR IV NR (08:30)
[2020-04-19] MEDS ORDERED: FAMOTIDINE 20MG/2ML VIAL IV SCH (09:00)
[2020-04-19 10:35] LABS: PLATELET ESTIMATE NORMAL
[2020-04-20] VITALS (102 sets, daily range): BP systolic 77–182; BP diastolic -9–64
[2020-04-20] MEDS: BLOOD SUGAR DIAGNOSTIC STRIP TEST SCH ×4 (00:24→17:36)
[2020-04-20] MEDS: SODIUM BICARBONATE 150 MEQ in DEXT 5%/0.45% NACL 1000ML 1,000 ML IV SCH ×3 (00:28)
[2020-04-20] MEDS: ACETAMINOPHEN 325MG TABLET PO PRN (00:29)
[2020-04-20] MEDS: INSULIN LISPRO 100 UNITS/ML SUBCUT SCH ×3 (00:29→11:47)
[2020-04-20] MEDS: PIPERACILLIN/TAZOBACTAM 2.25 G in DEXTROSE 5% WATER 50 ML IV SCH ×3 (02:21→17:36)
[2020-04-20] MEDS: LACTULOSE 20G/30ML UDC PO SCH ×3 (05:08→21:22)
[2020-04-20 07:12] LABS: HEMATOCRIT. 24.8 % (42.0-52.0); HEMOGLOBIN. 7.9 g/dL (14.0-18.0); MEAN CORPUSCULAR HEMOGLOBIN 28.8 pg (28.0-32.0); MEAN CORPUSCULAR VOLUME 90.1 fL (80.0-94.0); MEAN PLATELET VOLUME 8.4 fl (7.4-10.4); PLATELET 148 x1000/uL (130-400); RED BLOOD CELL COUNT 2.75 mill/uL (4.7-6.1); RED CELL DISTRIBUTION WIDTH 21.3 % (11.6-14.6)
[2020-04-20 07:14] LABS: CHLORIDE 90 mEq/L (98-107)
[2020-04-20] MEDS: DOPAMINE 800MG PREMIX (DOUBLE) 250 ML IV PRN (07:29)
[2020-04-20] MEDS: IPRATROPIUM/ALBUTEROL 0.5-3(2.5)MG/3ML NEB NEB PRN ×2 (08:37→12:27)
[2020-04-20] MEDS: PHENYLEPHRINE 50 MG in DEXT 5% WATER 245 ML IV PRN (08:50)
[2020-04-20] MEDS: PANTOPRAZOLE SODIUM 40 MG/VIAL IV SCH (09:23)
[2020-04-20 10:21] LABS: TOTAL IRON BINDING CAPACITY 180 ug/dL (250-450)
[2020-04-20 10:29] LABS: NUCLEATED RED BLOOD CELLS 2 /100 WBC
[2020-04-20 10:30] LABS: PLATELET ESTIMATE NORMAL
[2020-04-20 16:23] LABS: BG BASE EXCESS 4.3 mmol/L (-2.0-2.0); BG CARBOXYHEMOGLOBIN 0.1 % (0.5-1.5); BG FRACTION INSPIRED OXYGEN 28; BG HCO3 ACT 27.5 mmol/L (22.0-26.0); BG METHEMOGLOBIN 0.2 % (0.0-1.5); BG OXYHEMOGLOBIN 91.7 % (94.0-97.0); BG PCO2 35.3 mmHg (35.0-45.0); BG PO2 67.8 mmHg (75.0-100.0); BG SAMPLE SITE A-LINE; BG TIDAL VOLUME(mL) 500 mL; BG TOTAL HEMOGLOBIN 8.7 g/dL (12.0-18.0); BG VENT MODE VENT - A/C; BG VENT RATE 20 set
[2020-04-20] MEDS ORDERED: PHYTONADIONE 10MG/ML AMP SUBCUT NR (17:30)
[2020-04-20] MEDS ORDERED: VANCOMYCIN 750 MG PREMIX 150 ML IV NR (20:00)
[2020-04-20] MEDS: EPOETIN ALFA 10000UNITS/ML VIAL SUBCUT SCH (21:22)
[2020-04-21] VITALS (74 sets, daily range): BP systolic 81–172; BP diastolic 4–72
[2020-04-21] MEDS: SODIUM BICARBONATE 150 MEQ in DEXT 5%/0.45% NACL 1000ML 1,000 ML IV SCH ×2
[2020-04-21] MEDS: BLOOD SUGAR DIAGNOSTIC STRIP TEST SCH ×4 (00:39→17:52)
[2020-04-21] MEDS: ACETAMINOPHEN 325MG TABLET PO PRN (01:11)
[2020-04-21] MEDS: PIPERACILLIN/TAZOBACTAM 2.25 G in DEXTROSE 5% WATER 50 ML IV SCH ×3 (01:24→18:11)
[2020-04-21 05:31] LABS: HEMATOCRIT. 25.2 % (42.0-52.0); HEMOGLOBIN. 8.3 g/dL (14.0-18.0); MEAN CORPUSCULAR HEMOGLOBIN 29.5 pg (28.0-32.0); MEAN CORPUSCULAR VOLUME 89.4 fL (80.0-94.0); MEAN PLATELET VOLUME 8.6 fl (7.4-10.4); RED BLOOD CELL COUNT 2.81 mill/uL (4.7-6.1); RED CELL DISTRIBUTION WIDTH 21.7 % (11.6-14.6)
[2020-04-21 05:44] LABS: CHLORIDE 106 mEq/L (98-107)
[2020-04-21 05:59] LABS: INR 1.6; PROTHROMBIN TIME 16.2 sec (9.6-11.0)
[2020-04-21] MEDS: LACTULOSE 20G/30ML UDC PO SCH ×3 (06:38→21:29)
[2020-04-21] MEDS: INSULIN LISPRO 100 UNITS/ML SUBCUT SCH ×4 (06:40→18:12)
[2020-04-21] MEDS: IPRATROPIUM/ALBUTEROL 0.5-3(2.5)MG/3ML NEB NEB PRN ×2 (09:00→14:07)
[2020-04-21] MEDS: PANTOPRAZOLE SODIUM 40 MG/VIAL IV SCH (09:20)
[2020-04-21 10:45] LABS: NUCLEATED RED BLOOD CELLS 1 /100 WBC; PLATELET ESTIMATE NORMAL
[2020-04-21 10:46] LABS: PLATELET 153 x1000/uL (130-400)
[2020-04-22] VITALS (69 sets, daily range): BP systolic 85–188; BP diastolic 14–109
[2020-04-22] MEDS: INSULIN LISPRO 100 UNITS/ML SUBCUT SCH ×4 (00:11→17:56)
[2020-04-22] MEDS: PIPERACILLIN/TAZOBACTAM 2.25 G in DEXTROSE 5% WATER 50 ML IV SCH ×3 (01:25→17:56)
[2020-04-22] MEDS: BLOOD SUGAR DIAGNOSTIC STRIP TEST SCH ×4 (05:44→17:31)
[2020-04-22] MEDS: LACTULOSE 20G/30ML UDC PO SCH ×3 (05:45→22:11)
[2020-04-22 07:42] LABS: BASOPHILS % 0.4 % (0.0-2.0); HEMATOCRIT. 25.3 % (42.0-52.0); HEMOGLOBIN. 8.2 g/dL (14.0-18.0); LYMPHOCYTES % 9.5 % (20.0-50.0); MEAN CORPUSCULAR HEMOGLOBIN 29.6 pg (28.0-32.0); MEAN CORPUSCULAR VOLUME 91.1 fL (80.0-94.0); MEAN PLATELET VOLUME 8.8 fl (7.4-10.4); MONOCYTES % 6.5 % (2.0-8.0); NEUTROPHILS % 82.6 % (40.0-76.0); PLATELET 146 x1000/uL (130-400); RED BLOOD CELL COUNT 2.78 mill/uL (4.7-6.1); RED CELL DISTRIBUTION WIDTH 21.2 % (11.6-14.6)
[2020-04-22 07:48] LABS: CHLORIDE 107 mEq/L (98-107)
[2020-04-22 08:15] LABS: HEPATITIS B SURFACE ANTIGEN NEGATIVE
[2020-04-22] MEDS: PANTOPRAZOLE SODIUM 40 MG/VIAL IV SCH (08:36)
[2020-04-22 08:45] LABS: HEPATITIS A AB IGM NEGATIVE (NEGATIVE)
[2020-04-22] MEDS ORDERED: VANCOMYCIN 750 MG PREMIX 150 ML IV SCH ×2 (14:00)
[2020-04-23] VITALS (31 sets, daily range): BP systolic 95–205; BP diastolic 20–118
[2020-04-23] MEDS: BLOOD SUGAR DIAGNOSTIC STRIP TEST SCH ×5 (00:18→23:52)
[2020-04-23] MEDS: INSULIN LISPRO 100 UNITS/ML SUBCUT SCH ×5 (01:08→23:58)
[2020-04-23] MEDS: SODIUM BICARBONATE 150 MEQ in DEXT 5%/0.45% NACL 1000ML 1,000 ML IV SCH ×2 (02:26→23:41)
[2020-04-23] MEDS: PIPERACILLIN/TAZOBACTAM 2.25 G in DEXTROSE 5% WATER 50 ML IV SCH ×3 (02:27→18:33)
[2020-04-23] MEDS: LACTULOSE 20G/30ML UDC PO SCH ×3 (06:35→21:56)
[2020-04-23 09:30] LABS: BASOPHILS % 1.3 % (0.0-2.0); EOSINOPHILS % 1.7 % (0.0-5.0); HEMATOCRIT. 29.6 % (42.0-52.0); HEMOGLOBIN. 9.4 g/dL (14.0-18.0); LYMPHOCYTES % 10.4 % (20.0-50.0); MEAN CORPUSCULAR HEMOGLOBIN 29.4 pg (28.0-32.0); MEAN CORPUSCULAR VOLUME 92.4 fL (80.0-94.0); MONOCYTES % 8.6 % (2.0-8.0); PLATELET 154 x1000/uL (130-400); RED BLOOD CELL COUNT 3.21 mill/uL (4.7-6.1); RED CELL DISTRIBUTION WIDTH 21.5 % (11.6-14.6)
[2020-04-23] MEDS: PANTOPRAZOLE SODIUM 40 MG/VIAL IV SCH (09:36)
[2020-04-23 09:41] LABS: CHLORIDE 110 mEq/L (98-107)
[2020-04-23] MEDS ORDERED: LIDOCAINE HCL 1% 20ML VIAL (Pyxis) INJ ONE (10:54)
[2020-04-23] MEDS ORDERED: SODIUM BICARBONATE 4% (2.4MEQ) 5ML VIAL IV ONE (10:54)
[2020-04-23 15:25] LABS: BG BASE EXCESS 6.5 mmol/L (-2.0-2.0); BG CARBOXYHEMOGLOBIN 0.4 % (0.5-1.5); BG FRACTION INSPIRED OXYGEN 40; BG HCO3 ACT 28.3 mmol/L (22.0-26.0); BG METHEMOGLOBIN 0.3 % (0.0-1.5); BG OXYHEMOGLOBIN 98.3 % (94.0-97.0); BG PCO2 30.9 mmHg (35.0-45.0); BG PH 7.579 (7.350-7.450); BG PO2 158.7 mmHg (75.0-100.0); BG SAMPLE SITE A-LINE; BG TIDAL VOLUME(mL) 500 mL; BG TOTAL HEMOGLOBIN 11.5 g/dL (12.0-18.0); BG VENT MODE VENT - A/C; BG VENT RATE 20 set
[2020-04-23] MEDS ORDERED: POTASSIUM CHLORIDE INJ 40 MEQ in DEXT 5% WATER 250 ML IV NR (16:00)
[2020-04-23] MEDS: AMLODIPINE 5MG TABLET PO SCH (16:36)
[2020-04-23] MEDS ORDERED: POTASSIUM CHLORIDE INJ 20 MEQ in DEXT 5% WATER 500 ML IV ONE (18:00)
[2020-04-23] MEDS ORDERED: KCL 20MEQ/100ML PREMIX 100 ML IV ONE (20:00)
[2020-04-23] MEDS: EPOETIN ALFA 10000UNITS/ML VIAL SUBCUT SCH (20:03)
[2020-04-24] VITALS (56 sets, daily range): BP systolic 94–165; BP diastolic 23–76
[2020-04-24] MEDS: PIPERACILLIN/TAZOBACTAM 2.25 G in DEXTROSE 5% WATER 50 ML IV SCH ×3 (01:27→17:46)
[2020-04-24] MEDS: LACTULOSE 20G/30ML UDC PO SCH ×3 (06:05→21:13)
[2020-04-24 06:11] LABS: HEMATOCRIT 29.1 % (42.0-52.0); HEMOGLOBIN 9.3 g/dL (14.0-18.0); MEAN CORPUSCULAR HEMOGLOBIN 30.1 pg (28.0-32.0); MEAN CORPUSCULAR VOLUME 93.8 fL (80.0-94.0); PLATELET 138 x1000/uL (130-400); RED BLOOD CELL COUNT 3.11 mill/uL (4.7-6.1); RED CELL DISTRIBUTION WIDTH 21.9 % (11.6-14.6)
[2020-04-24] MEDS: BLOOD SUGAR DIAGNOSTIC STRIP TEST SCH ×3 (06:19→17:41)
[2020-04-24] MEDS: INSULIN LISPRO 100 UNITS/ML SUBCUT SCH ×3 (06:25→17:46)
[2020-04-24 08:04] LABS: BG BASE EXCESS 5.5 mmol/L (-2.0-2.0); BG CARBOXYHEMOGLOBIN 0.3 % (0.5-1.5); BG FRACTION INSPIRED OXYGEN 30; BG HCO3 ACT 29.7 mmol/L (22.0-26.0); BG METHEMOGLOBIN 0.2 % (0.0-1.5); BG OXYHEMOGLOBIN 97.5 % (94.0-97.0); BG PH 7.467 (7.350-7.450); BG PO2 111.4 mmHg (75.0-100.0); BG SAMPLE SITE RIGHT RADIAL; BG TIDAL VOLUME(mL) 400 mL; BG TOTAL HEMOGLOBIN 10.4 g/dL (12.0-18.0); BG VENT MODE VENT - A/C; BG VENT RATE 14 set
[2020-04-24] MEDS: AMLODIPINE 5MG TABLET PO SCH (09:00)
[2020-04-24] MEDS: PANTOPRAZOLE SODIUM 40 MG/VIAL IV SCH (09:28)
[2020-04-24] MEDS: DEXT 5%/0.45% NACL 1000ML 1,000 ML IV SCH (09:34)
[2020-04-24] MEDS: PHENYLEPHRINE 50 MG in DEXT 5% WATER 245 ML IV PRN (13:17)
[2020-04-25] VITALS (24 sets, daily range): BP systolic 106–149; BP diastolic 28–58
[2020-04-25] MEDS: BLOOD SUGAR DIAGNOSTIC STRIP TEST SCH ×4 (00:53→17:54)
[2020-04-25] MEDS: INSULIN LISPRO 100 UNITS/ML SUBCUT SCH ×4 (01:02→18:02)
[2020-04-25] MEDS: PIPERACILLIN/TAZOBACTAM 2.25 G in DEXTROSE 5% WATER 50 ML IV SCH ×2 (01:10→10:35)
[2020-04-25] MEDS: DEXT 5%/0.45% NACL 1000ML 1,000 ML IV SCH (03:51)
[2020-04-25] MEDS: LACTULOSE 20G/30ML UDC PO SCH (06:28)
[2020-04-25 07:25] LABS: INR 1.1; PARTIAL THROMBOPLASTIN TIME 21.7 sec (23.4-31.0); PROTHROMBIN TIME 11.8 sec (9.6-11.0)
[2020-04-25] MEDS: AMLODIPINE 5MG TABLET PO SCH (08:34)
[2020-04-25] MEDS: PANTOPRAZOLE SODIUM 40 MG/VIAL IV SCH (08:34)
[2020-04-25 09:42] LABS: BG BASE EXCESS 2.4 mmol/L (-2.0-2.0); BG CARBOXYHEMOGLOBIN 0.3 % (0.5-1.5); BG DEOXYHEMOGLOBIN 1.7 % (0.0-5.0); BG FRACTION INSPIRED OXYGEN 30; BG HCO3 ACT 26.2 mmol/L (22.0-26.0); BG METHEMOGLOBIN 0.4 % (0.0-1.5); BG OXYGEN SATURATION 98.3 % (92.0-98.5); BG OXYHEMOGLOBIN 97.6 % (94.0-97.0); BG PCO2 37.5 mmHg (35.0-45.0); BG PH 7.462 (7.350-7.450); BG PO2 138.8 mmHg (75.0-100.0); BG SAMPLE SITE RIGHT RADIAL; BG TIDAL VOLUME(mL) 400 mL; BG TOTAL HEMOGLOBIN 10.8 g/dL (12.0-18.0); BG VENT MODE VENT - A/C; BG VENT RATE 14 set
[2020-04-25 10:07] LABS: BASOPHILS % 1.1 % (0.0-2.0); EOSINOPHILS % 8.1 % (0.0-5.0); HEMATOCRIT. 30.5 % (42.0-52.0); HEMOGLOBIN. 9.7 g/dL (14.0-18.0); LYMPHOCYTES % 10.9 % (20.0-50.0); MEAN CORPUSCULAR HEMOGLOBIN 29.9 pg (28.0-32.0); MEAN CORPUSCULAR VOLUME 94.3 fL (80.0-94.0); MEAN PLATELET VOLUME 8.8 fl (7.4-10.4); MONOCYTES % 7.7 % (2.0-8.0); NEUTROPHILS % 72.2 % (40.0-76.0); PLATELET 127 x1000/uL (130-400); RED BLOOD CELL COUNT 3.23 mill/uL (4.7-6.1); RED CELL DISTRIBUTION WIDTH 22.4 % (11.6-14.6)
[2020-04-25] MEDS: INSULIN GLARGINE UD 100 UNITS/ML SYR SUBCUT SCH (22:38)
[2020-04-26] VITALS (24 sets, daily range): BP systolic 96–156; BP diastolic 28–55
[2020-04-26] MEDS: DEXT 5%/0.45% NACL 1000ML 1,000 ML IV SCH ×2 (00:07→20:28)
[2020-04-26] MEDS: INSULIN LISPRO 100 UNITS/ML SUBCUT SCH ×4 (00:07→18:04)
[2020-04-26] MEDS: BLOOD SUGAR DIAGNOSTIC STRIP TEST SCH ×5 (00:07→23:59)
[2020-04-26 05:52] LABS: BASOPHILS % 0.8 % (0.0-2.0); HEMATOCRIT. 28.7 % (42.0-52.0); HEMOGLOBIN. 9.2 g/dL (14.0-18.0); LYMPHOCYTES % 12.2 % (20.0-50.0); MEAN CORPUSCULAR HEMOGLOBIN 30.1 pg (28.0-32.0); MEAN CORPUSCULAR VOLUME 93.6 fL (80.0-94.0); MEAN PLATELET VOLUME 8.7 fl (7.4-10.4); MONOCYTES % 8.2 % (2.0-8.0); NEUTROPHILS % 67.8 % (40.0-76.0); PLATELET 129 x1000/uL (130-400); RED BLOOD CELL COUNT 3.07 mill/uL (4.7-6.1); RED CELL DISTRIBUTION WIDTH 22.5 % (11.6-14.6)
[2020-04-26] MEDS: IPRATROPIUM/ALBUTEROL 0.5-3(2.5)MG/3ML NEB NEB PRN (08:41)
[2020-04-26] MEDS: PANTOPRAZOLE SODIUM 40 MG/VIAL IV SCH (09:01)
[2020-04-26] MEDS: AMLODIPINE 2.5MG TABLET PO SCH (09:02)
[2020-04-26] MEDS: INSULIN GLARGINE UD 100 UNITS/ML SYR SUBCUT SCH (22:28)
[2020-04-27] VITALS (24 sets, daily range): BP systolic 102–154; BP diastolic 31–53
[2020-04-27] MEDS: BLOOD SUGAR DIAGNOSTIC STRIP TEST SCH ×4 (05:15→23:45)
[2020-04-27] MEDS: INSULIN LISPRO 100 UNITS/ML SUBCUT SCH ×5 (05:35→23:45)
[2020-04-27 06:35] LABS: HEMATOCRIT 30.9 % (42.0-52.0); MEAN CORPUSCULAR HEMOGLOBIN 30.3 pg (28.0-32.0); PLATELET 150 x1000/uL (130-400); RED BLOOD CELL COUNT 3.29 mill/uL (4.7-6.1); RED CELL DISTRIBUTION WIDTH 21.9 % (11.6-14.6)
[2020-04-27] MEDS: PANTOPRAZOLE SODIUM 40 MG/VIAL IV SCH (08:02)
[2020-04-27] MEDS: AMLODIPINE 2.5MG TABLET PO SCH (08:02)
[2020-04-27] MEDS: DEXT 5%/0.45% NACL 1000ML 1,000 ML IV SCH (17:26)
[2020-04-27] MEDS: INSULIN GLARGINE UD 100 UNITS/ML SYR SUBCUT SCH (22:18)
[2020-04-28] VITALS (14 sets, daily range): BP systolic 98–130; BP diastolic 31–62
[2020-04-28] MEDS: BLOOD SUGAR DIAGNOSTIC STRIP TEST SCH ×2 (05:42→12:38)
[2020-04-28] MEDS: INSULIN LISPRO 100 UNITS/ML SUBCUT SCH ×2 (05:47→12:40)
[2020-04-28 07:17] LABS: HEMATOCRIT 29.8 % (42.0-52.0); HEMOGLOBIN 9.7 g/dL (14.0-18.0); MEAN CORPUSCULAR HEMOGLOBIN 30.5 pg (28.0-32.0); MEAN CORPUSCULAR VOLUME 93.6 fL (80.0-94.0); PLATELET 174 x1000/uL (130-400); RED BLOOD CELL COUNT 3.18 mill/uL (4.7-6.1); RED CELL DISTRIBUTION WIDTH 22.3 % (11.6-14.6)
[2020-04-28] MEDS: AMLODIPINE 2.5MG TABLET PO SCH (08:06)
[2020-04-28] MEDS: PANTOPRAZOLE SODIUM 40 MG/VIAL IV SCH (08:06)
[2020-04-28] MEDS ORDERED: MORPHINE SULFATE 2 MG/ML CPJ (NOT FOR IM USE) IV ONE (12:45)
[2020-04-28] MEDS ORDERED: MORPHINE SULFATE 2 MG/ML CPJ (NOT FOR IM USE) IV PRN (12:45)
[2020-04-28] MEDS ORDERED: LORAZEPAM 2MG/ML CPJ IV PRN (12:45)
== END 2020-04-28 14:44 | disposition expired | DRG 870 ==
LOC: ER 21:03 → 5WST 04-18 03:43 → EDBEDREQ 04-18 03:44 → EDBEDREQTM 04-18 03:44 → ENRESERV 04-18 07:49 → CVICU 04-18 13:52
PROVIDERS: ADMIT Internal Medicine; ATTEND Internal Medicine
PROC: 5A1955Z Respiratory Ventilation, Greater than 96 Consecutive Hours (ICD-10-PCS; principal; 2020-04-18)
PROC: 0BH17EZ Insertion of Endotracheal Airway into Trachea, Via Natural or Artificial Opening (ICD-10-PCS; 2020-04-18)
PROC: 5A12012 Performance of Cardiac Output, Single, Manual (ICD-10-PCS; 2020-04-18)
PROC: 5A1D70Z Performance of Urinary Filtration, Intermittent, Less than 6 Hours Per Day (ICD-10-PCS; 2020-04-18)
PROC: 30233N1 Transfusion of Nonautologous Red Blood Cells into Peripheral Vein, Percutaneous Approach (ICD-10-PCS; 2020-04-19)
PROC: 5A1D70Z Performance of Urinary Filtration, Intermittent, Less than 6 Hours Per Day (ICD-10-PCS; 2020-04-20)
PROC: 5A1D70Z Performance of Urinary Filtration, Intermittent, Less than 6 Hours Per Day (ICD-10-PCS; 2020-04-22)
PROC: 02HV33Z Insertion of Infusion Device into Superior Vena Cava, Percutaneous Approach (ICD-10-PCS; 2020-04-23)
PROC: 5A1D70Z Performance of Urinary Filtration, Intermittent, Less than 6 Hours Per Day (ICD-10-PCS; 2020-04-24)
PROC: 4A00X4Z Measurement of Central Nervous Electrical Activity, External Approach (ICD-10-PCS; 2020-04-26)
DX: A41.9 Sepsis, unspecified organism (principal); G93.41 Metabolic encephalopathy; J96.01 Acute respiratory failure with hypoxia; N18.6 End stage renal disease; R65.21 Severe sepsis with septic shock; J18.9 Pneumonia, unspecified organism; K72.00 Acute and subacute hepatic failure without coma; K66.1 Hemoperitoneum; I21.4 Non-ST elevation (NSTEMI) myocardial infarction; E87.2 Acidosis; K80.00 Calculus of gallbladder with acute cholecystitis without obstruction; G93.1 Anoxic brain damage, not elsewhere classified; D62 Acute posthemorrhagic anemia; E46 Unspecified protein-calorie malnutrition; D68.9 Coagulation defect, unspecified; I12.0 Hypertensive chronic kidney disease with stage 5 chronic kidney disease or end stage renal disease; E87.5 Hyperkalemia; D63.8 Anemia in other chronic diseases classified elsewhere; E11.22 Type 2 diabetes mellitus with diabetic chronic kidney disease; E87.70 Fluid overload, unspecified; E11.649 Type 2 diabetes mellitus with hypoglycemia without coma; H54.8 Legal blindness, as defined in USA; I27.21 Secondary pulmonary arterial hypertension; I25.10 Atherosclerotic heart disease of native coronary artery without angina pectoris; M48.061 Spinal stenosis, lumbar region without neurogenic claudication; M54.16 Radiculopathy, lumbar region; R16.0 Hepatomegaly, not elsewhere classified; I46.9 Cardiac arrest, cause unspecified; E11.65 Type 2 diabetes mellitus with hyperglycemia; I48.91 Unspecified atrial fibrillation; Z66 Do not resuscitate; Z51.5 Encounter for palliative care; K76.0 Fatty (change of) liver, not elsewhere classified; I49.3 Ventricular premature depolarization; I35.0 Nonrheumatic aortic (valve) stenosis; N28.81 Hypertrophy of kidney; D53.9 Nutritional anemia, unspecified; Z79.891 Long term (current) use of opiate analgesic; Z79.84 Long term (current) use of oral hypoglycemic drugs; Z79.899 Other long term (current) drug therapy; Z90.49 Acquired absence of other specified parts of digestive tract; Z99.2 Dependence on renal dialysis; I25.2 Old myocardial infarction; Z78.1 Physical restraint status
CPT/HCPCS: 36415; 36600; 70551; 71045; 74176; 76700; 76937; 78227; 78580; 78610; 80048; 80051; 80053; 80061; 80076; 80202; 82140; 82248; 82270; 82375; 82805; 82962; 83036; 83540; 83550; 83605; 83735; 84132; 84145; 84439; 84443; 84484; 85007; 85025; 85027; 85379; 86705; 86709; 86803; 86850; 86900; 86920; 87070; 87340; 93005; 93306; 93970; 94002; 94003; 94640; 95816; 99291; A9512; A9537; C1725; C9113; J0456; J0696; J0885; J1265; J1815; J2060; J2270; J2370; J2543; J2704; J3370; J3430; J3480; J3490; J7042; J7060; P9016